=== PATIENT | male | born 1965 | race Caucasian/White ===

== ENCOUNTER 2018-10-26 01:52 | Inpatient (IN) | payer SELFPAY ==
[~2018-10-26] VITALS: Ht 162.6 cm; Wt 74.2 kg
[2018-10-26 01:58] VITALS: Ht 162.6 cm; Wt 74.2 kg
--- NOTE | 2018-10-26 02:48 | NUR ---
PT AMBULATED WITH STEADY GAIT TO BR. PT AWARE OF NEEDED URINE SPECIMEN.
[2018-10-26 03:05] LABS: microscopic required? NO
[2018-10-26 03:29] LABS: UA SPECIFIC GRAVITY 1.015 (1.005-1.035); urine erythrocyte NEGATIVE (NEGATIVE)
[2018-10-26 03:29] LABS: CARBON DIOXIDE 26.9 mmol/L (21-32); CHLORIDE SERUM 101 mmol/L (98-107); CREATININE SERUM 0.9 mg/dL (0.7-1.3); GFR1 > 60 mL/min; GLUCOSE SERUM 260 mg/dL (74-106); POTASSIUM SERUM 3.7 mmol/L (3.5-5.1); SODIUM SERUM 139 mmol/L (136-145)
[2018-10-26 03:33] LABS: ALKALINE PHOSPHATASE 80 U/L (46-116); ALT/SGPT 15 U/L (16-63); AST/SGOT 11 U/L (15-37); BILIRUBIN TOTAL 1.42 mg/dL (0.20-1.00); LIPASE 74 IU/L (73-393); TOTAL PROTEIN, SERUM 7.5 g/dL (6.4-8.2)
[2018-10-26 03:39] LABS: BASOPHIL % 0.2 % (0-2); PLATELET COUNT 238 x10^3mcL (130-400); RED CELL DISTRIBUTION WIDTH 12.6 % (11.5-14.5)
--- NOTE | 2018-10-26 04:30 | NUR ---
PER DR CORREIA, ERP, VERBAL INSTRUCTIONS HOLD OFF ZOSYN MED UNTIL POST CT RESULTS.
--- NOTE | 2018-10-26 06:22 | NUR ---
PT REFUSED PAIN MED AT THIS TIME. PT ENOUCRAGED TO ASK WHEN NEEDED. PT AGREED AND VERBALIZED UNDERSTANDING.
--- NOTE | 2018-10-26 07:15 | NUR ---
REPORT GIVEN TO MARKUS SORIA. OPPORTUNITY GIVEN TO ASK QUESTIONS. PT'S CARE COMPLETED BY THIS RN AT THIS TIME.
--- NOTE | 2018-10-26 07:16 | NUR ---
REPORT RECEIVED FROM EVER SORIA. I AM RESUMING CARE OF PT AT THIS TIME. PT [id number] RESTING COMFORTABLY IN BED DAUGHTER AT BEDSIDE AWAITING ADMIT TO MED/SURG
--- NOTE | 2018-10-26 07:17 | NUR ---
ATTEMPTED TO CALL REPORT TO FLOOR RN - RN NOT AVAILABLE AT THIS TIME.
[2018-10-26 07:35] LABS: CHOLESTEROL/HDL RATIO 4.3; PHOSPHOROUS 3.6 mg/dL (2.5-4.9)
[2018-10-26 07:39] LABS: T3 TOTAL 1.14 ng/mL
[2018-10-26 07:48] LABS: FREE T4 0.95 ng/dL (0.76-1.46); FREE THYROXINE INDEX 2.7 ug/dL (1.4-4.5)
[2018-10-26 08:02] LABS: AMPHETAMINE QUAL UR NONE DETECTED (See below)
--- NOTE | 2018-10-26 08:02 | NUR ---
REPORT GIVEN TO NORI SORIA EXT [id number] MED/SURG WHO WILL RESUME CARE OF PT
--- NOTE | 2018-10-26 08:30 | NUR ---
ADMITTED FR. ER VIA [facility] ACCOMPANIED BY ER NURSE.CHIEF C/O RECTAL PAIN SINCE YESTERDAY.AAO X4.BELIZEAN MOSTLY.C/O RECTAL PAIN AT 4/10 PAIN SCALE.CLAIMS HE IS COMFORTABLE AT THE MOMENT.LUNGS CLEAR.PT NON-TELE.DAUGHTER MARKY AT BEDSIDE TO TRANSLATE.ADMISSION ASSESSMENT AND HX COMPLETED.CALL LIGHT WITHIN REACH.INSTRUCTED TO CALL FOR ANY PAIN/DISCOMFORT.WILL CONTINUE TO MONITOR PT.
[2018-10-26 08:37] VITALS: BP 114/69
--- NOTE | 2018-10-26 12:34 | NUR ---
SPECIMEN COLLECTED FOR MRSA OF THE NARES.
[2018-10-26 17:38] VITALS: BP 112/54
--- NOTE | 2018-10-26 18:37 | NUR ---
NO SIGNIFICANT CHANGE NOTED.WILL ENDORSE TO NEXT SHIFT.
--- NOTE | 2018-10-26 19:50 | NUR ---
AWAKE IN BED WATCHING TV, DENEIS ANY PAIN/DISCOMFORT AT THIS TIME. IVF NS AT 100CC/HR INFUSING WELL VIA PERIPHERAL LINE TOLERATING WELL. PLACED CALL LIGHT WITHIN REACH, INSTRUCTED TO CALL FOR ANY ASSSITANCE BEEDED, PT VERBALIZED UNDERSTADING
[2018-10-26 21:18] VITALS: BP 114/59
--- NOTE | 2018-10-26 23:37 | NUR ---
EYES CLOSED, NO FACIAL GRIAMCING NOTED. RESPIRATION EVEN AND UNLABORED. NO S/S OF PAIN/DISCOMFORT. CALL LIGHT WITHIN REACH. BED LOCKED AND IN LOWEST POSITION FOR SAFETY. WILL CONTINUE TO MONITOR.
[2018-10-27 04:52] VITALS: BP 100/57
[2018-10-27 06:09] LABS: PLATELET COUNT 217 x10^3mcL (130-400); RED CELL DISTRIBUTION WIDTH 12.5 % (11.5-14.5)
[2018-10-27 06:24] LABS: CALCIUM 8.6 mg/dL (8.5-10.1); CARBON DIOXIDE 26.8 mmol/L (21-32); CHLORIDE SERUM 103 mmol/L (98-107); CREATININE SERUM 0.9 mg/dL (0.7-1.3); GFR1 > 60 mL/min; GLUCOSE SERUM 148 mg/dL (74-106); POTASSIUM SERUM 3.9 mmol/L (3.5-5.1); SODIUM SERUM 138 mmol/L (136-145)
--- NOTE | 2018-10-27 06:46 | NUR ---
BLOOD SUGAR CHECK DOEN 135MG/SL, NO HRI COVERAGE PER SLIDING SCALE. CONTINUES ON ATB IVPB WITHOUT ADVERSE REACTION. ALL NEEDS ATENDED,
[2018-10-27 07:00] LABS: BASOPHIL % 0 % (0-2)
--- NOTE | 2018-10-27 07:30 | NUR ---
RECEIVED PATIENT IN BED, AWAKE, ALER AND ORIENTED. URDU SPEAKING. PATIENT C/O RECTAL PAIN, 8/10 ON THE PAIN SCALE. WILL MEDICATE ORDERED. IVF INFUSING WELL, SITE PATENT. RESP EVEN AND UNLABORED, LUNGS CLEAR ON ROOM AIR. NO ACUTE DISTRESS NOTED. WILL CONTINUE TO MONITOR.
--- NOTE | 2018-10-27 09:20 | NUR ---
PATIENT APPEARS TO BE RESTING WELL IN BED. FAMILY MEMBERS AT BEDSIDE. PER PATIENT RECTAL PAIN HAS DECREASED FROM 8/10 TO 4/10 ON THE PAIN SCALE, AFTER PAIN MED WAS GIVEN. WILL CONTINUE TO MONITOR.
[2018-10-27 10:03] VITALS: BP 111/71
--- NOTE | 2018-10-27 12:00 | NUR ---
PATIENT IS IN BED AWAKE, AND ALERT. FAMILY MEMBERS AT BEDSIDE. PER PATIENT RECTAL PAIN HAS DECREASED AND IS TOLERABLE. WILL CONTINUE TO MONITOR.
--- NOTE | 2018-10-27 15:31 | NUR ---
PATIENT IS IN BED WITH FAMILY MEMBERS AT BEDSIDE. C/O RECTAL PAIN 6/10 ON THE PAIN SCALE. MEDICATED WITH NORCO PO ORDERED. WILL CONTINUE TO MONITOR.
[2018-10-27 16:16] VITALS: BP 117/64
--- NOTE | 2018-10-27 18:23 | NUR ---
PATIENT SITTING UP IN BED WITH FAMILY MEMBERS AT BEDSIDE. RECTAL PAIN HAS SUBSIDED AFTER NORCO WAS GIVEN PER PATIENT. INFLUENZA A&B SWAB COLLECTED AND SENT TO THE LAB. NO ACUTE DISTRESS NOTED.
--- NOTE | 2018-10-27 18:32 | NUR ---
I HAVE REVIEWED THE DATA COLLECTION BY WIL (NAME): MICKI MERCADO ENTERED ON (DATE/TIME): 10/27/18 I CONCUR WITH THE DATA AND ANY EXCEPTIONS OR COMMENTS ARE LISTED BELOW:
--- NOTE | 2018-10-27 20:00 | NUR ---
RECEIVED PT IN BED, A/O X4. RESTING QUIETLY IN BED. DENIES HEADACHE/DIZZINESS. RESP. EVEN AND UNLABORED. ON ROOM AIR, NO ACUTE DISTRESS NOTED. AFEBRILE AND VITAL SIGNS STABLE. NO TELE, DENIES CP. IVF, NS AT 100ML/HR, INTACT AND INFUSING VIA LAC, SITE CLEAR. DENIES PAIN OR ANY DISCOMFORT AT THIS TIME. ASSISTED WITH HS CARE. CALL LIGHT WITHIN REACH. WILL CONTINUE TO MONITOR.
[2018-10-27 21:06] VITALS: BP 136/77
--- NOTE | 2018-10-27 22:01 | NUR ---
NO COMPLAINTS NOTED AT THIS TIME. DUE MEDS GIVEN ORDERED, MAMI. WELL. WILL CONTINUE TO MONITOR.
--- NOTE | 2018-10-28 01:47 | NUR ---
EYES CLOSED, APPEARS ASLEEP, EASILY AROUSABLE. NO ACUTE DISTRESS NOTED. IVF INTACT AND INFUSING WELL. WILL CONTINUE TO MONITOR.
[2018-10-28 05:58] VITALS: BP 123/74
--- NOTE | 2018-10-28 05:58 | NUR ---
SLEPT WELL. NO COMPLAINTS NOTED. DENIES RECTAL PAIN OR ANY DISCOMFORT AT THIS TIME. AFEBRILE AND VITAL SIGNS STABLE. RESP. EVEN AND UNLABORED. NO ACUTE DISTRESS NOTED. DUE MEDS GIVEN ORDERED, MAMI. WELL. IVF INTACT AND INFUSING WELL, SITE CLEAR. VOIDING FREELY. BLOOD SUGAR CHECKED, REQUIRED INSULIN COVERAGE GIVEN ORDERED. WILL CONTINUE TO MONITOR.
[2018-10-28 07:07] LABS: CALCIUM 8.1 mg/dL (8.5-10.1); CARBON DIOXIDE 27.2 mmol/L (21-32); CHLORIDE SERUM 104 mmol/L (98-107); CREATININE SERUM 0.7 mg/dL (0.7-1.3); GFR1 > 60 mL/min; GLUCOSE SERUM 166 mg/dL (74-106); POTASSIUM SERUM 3.9 mmol/L (3.5-5.1); SODIUM SERUM 139 mmol/L (136-145)
[2018-10-28 07:14] LABS: BASOPHIL % 0.5 % (0-2); PLATELET COUNT 241 x10^3mcL (130-400); RED CELL DISTRIBUTION WIDTH 11.7 % (11.5-14.5)
--- NOTE | 2018-10-28 07:30 | NUR ---
RECEIVED PATIENT IN BED, AWAKE ALERT AND ORIENTED. IVF INFUSING WELL, SITE PATENT. DENIES ANY PAIN OR DISCOMFORT. AMBULATES AD LULI TO THE BATRHOOM. TOLERATING DIET WELL. RESP EVEN AND UNLABORED, LUNGS CLEAR. NO ACUTE DISTRESS NOTED. WILL CONTINUE TO MONITOR.
[2018-10-28 08:22] VITALS: BP 123/79
[2018-10-28] MEDS ORDERED: METFORMIN HCL1000 MG PO (10:23)
[2018-10-28] MEDS ORDERED: LEVOFLOXACIN750 M1 PO (10:23)
[2018-10-28] MEDS ORDERED: FLA500 PO (10:24)
[2018-10-28] MEDS ORDERED: LAC PO (10:24)
[2018-10-28 12:03] VITALS: BP 134/83
--- NOTE | 2018-10-28 12:29 | NUR ---
PATIENT'S PLAN OF CARE WAS DISCUSSED AND REVIEWED WITH E LEARNING DEVELOPER: MICKI MERCADO
[2018-10-28] MEDS ORDERED: IBUPROFEN400 MG (12:32)
[2018-10-28 12:34] VITALS: BP 134/83
--- NOTE | 2018-10-28 12:53 | NUR ---
PATIENT IS SITTIING UP IN BED EATING LUNCH TRAY. D/C HOME ORDER RECEIVED. PATIENT TO D/C HOME THIS AFTERNOON AFTER IV ANTIBIOTICS.
--- NOTE | 2018-10-28 15:22 | NUR ---
I HAVE REVIEWED THE DATA COLLECTION BY WIL (NAME): MICKI MERCADO ENTERED ON (DATE/TIME): [id number] I CONCUR WITH THE DATA AND ANY EXCEPTIONS OR COMMENTS ARE LISTED BELOW:
--- NOTE | 2018-10-28 15:38 | NUR ---
PATIENT READY FOR D/C HOME. DC'D. PRESCRIPTIONS AND FOLLOW UP INSTRUCTIONS GIVEN. PERSONAL BELONGINGS LIST SIGNED. PATIENT'S DAUGHTER AT BEDSIDE AND TRANSLATED FOR PATIENT. CONDITION APPEARS STABLE. NO ACUTE DISTRESS NOTED.
== END 2018-10-28 16:00 | disposition home or self-care (01) | DRG 395 ==
LOC: ED 01:52 → MU 06:00 → DU 06:00 → MU 08:11
PROVIDERS: Emergency Medicine; Family Medicine; ADMIT Internal Medicine
DX: K63.89 Other specified diseases of intestine (principal); E11.65 Type 2 diabetes mellitus with hyperglycemia; K62.89 Other specified diseases of anus and rectum; R74.0 Nonspecific elevation of levels of transaminase and lactic acid dehydrogenase [LDH]; E78.5 Hyperlipidemia, unspecified; Z90.49 Acquired absence of other specified parts of digestive tract; Z91.14 Patient's other noncompliance with medication regimen
CPT/HCPCS: 82962; 83880; 84439; 87804; J1644; J1815; J1956; J2270; J2543; J3490; J7030; Q0092; Q9967